=== PATIENT | female | born 1995 | race American Indian/Alaskan Native ===

== ENCOUNTER 2021-06-16 12:25 | Emergency (ER) | payer MEDICAID ==
[2021-06-16] MEDS ORDERED: ACETAMINOPHEN 325 MG TAB PO ONE (12:44)
[2021-06-16 13:11] LABS: Basophils # (Auto) 0.1 K/mm3 (0.0-0.1); Basophils % (Auto) 0.6 % (0.0-1.8); Eosinophils % (Auto) 0.2 % (0.0-4.3); Hematocrit 40.3 % (30.3-42.9); Hemoglobin 13.1 gm/dl (10.1-14.3); Lymphocytes # (Auto) 1.8 K/mm3 (1.2-5.4); Lymphocytes % (Auto) 20.4 % (13.4-35.0); Mean Corpuscular HGB Conc 33 % (30-34); Mean Corpuscular Volume 89 fl (79-97); Monocytes # (Auto) 0.4 K/mm3 (0.0-0.8); Monocytes % (Auto) 4.6 % (0.0-7.3); Platelet Count 292 K/mm3 (140-440); Red Blood Count 4.54 M/mm3 (3.65-5.03); Red Cell Distribution Width 13.6 % (13.2-15.2)
[2021-06-16 13:35] LABS: Bilirubin,Urine NEG (Negative); Blood,Urine NEG (Negative); Color,Urine Amber (Yellow); Mucus,Urine 3+ /HPF; Urobilinogen,Urine < 2.0 mg/dL (<2.0)
--- NOTE | 2021-06-16 13:49 | Ultrasound Report ---
ULTRASOUND OBSTETRIC INDICATION / CLINICAL INFORMATION: , spotting, cramping. Clinical Gestational Age (GA): 5.2 weeks.days TECHNIQUE: Transabdominal and Transvaginal. COMPARISON: None available. FINDINGS: GESTATIONAL SAC: Well-defined oval shape and intrauterine in location. Gestational sac size measures 7.0 mm which corresponds to 5 weeks and 3 days. No pole identified. YOLK SAC: Not well seen ADNEXA: Right ovarian corpus luteal cyst seen FREE FLUID: None. ADDITIONAL FINDINGS: None. IMPRESSION: Gestational sac in the uterus with sac size corresponding to 5 weeks and 3 days gestational age. No f etal pole identified at this time. Follow-up ultrasound in 10-14 days can be used to confirm intraute rine . Signer Name: Nelson Magana MD Signed: 06/16/2021 1:45 PM Workstation Name: [id number]
[2021-06-16 14:07] LABS: Alanine Aminotransferase 17 units/L (7-56); Albumin 4.9 g/dL (3.9-5); BUN/Creatinine Ratio 20; Blood Urea Nitrogen 10 mg/dL (7-17); Calcium 9.8 mg/dL (8.4-10.2); Hemolysis Index 25
--- NOTE | 2021-06-16 14:28 | Emergency Department Report ---
ED HPI - General Chief complaint: Vaginal Bleeding Stated complaint: vaginal bleeding- Time Seen by Provider: 06/16/21 12:38 Source: patient Mode of arrival: Ambulatory Limitations: No Limitations - History of Present Illness Initial comments: Patient is a 26-year-old female presents emergency room with complaints of vaginal spotting that began a few days ago. She states that she has had a lot of increased stress and she thinks that this may be attributing to her spotting. She has lower abdominal cramping. She denies any falls or injuries. She states that she is approximately 5 weeks and states that she just had her first appointment with her NITRO MAN at [facility]. She denies any fever, nausea, vomiting, diarrhea, dysuria, vaginal discharge. no allergies to meds. /P:1/A:1 LNMP in april 2021 - Related Data Allergies Allergy/AdvReac Type Severity Reaction Status Date / Time No Known Allergies Allergy Verified 06/16/21 12:34 ED Review of Systems ROS: Stated complaint: vaginal bleeding- Other details as noted in HPI Comment: All other systems reviewed and negative ED Physical Exam - General Limitations: No Limitations General appearance: alert, in no apparent distress - Head Head exam: Present: atraumatic, normocephalic - Eye Eye exam: Present: normal appearance - ENT ENT exam: Present: mucous membranes moist - Respiratory Respiratory exam: Present: normal lung sounds bilaterally. Absent: respiratory distress, wheezes, rales, rhonchi, stridor, chest wall tenderness, accessory muscle use, decreased breath sounds, prolonged expiratory - Cardiovascular Cardiovascular Exam: Present: regular rate, normal rhythm, normal heart sounds. Absent: systolic murmur, diastolic murmur, rubs, gallop - GI/Abdominal GI/Abdominal exam: Present: soft, normal bowel sounds. Absent: distended, tenderness, guarding, rebound, rigid - Neurological Exam Neurological exam: Present: alert, oriented X3 - Psychiatric Psychiatric exam: Present: normal affect, normal mood - Skin Skin exam: Present: warm, dry, intact ED Course Vital Signs 06/16/21 06/16/21 12:30 14:49 Temperature 98.9 F 98.2 F Pulse Rate 95 H 85 Respiratory 18 14 Rate Blood Pressure 133/78 Blood Pressure 111/67 [Right] O2 Sat by Pulse 97 98 Oximetry ED Medical Decision Making - Lab Data Result diagrams: 06/16/21 12:50 06/16/21 12:50 Lab Results 06/16/21 06/16/21 06/16/21 Range/Units 12:50 12:50 12:50 WBC 9.0 (4.5-11.0) K/mm3 RBC 4.54 (3.65-5.03) M/mm3 Hgb 13.1 (10.1-14.3) gm/dl Hct 40.3 (30.3-42.9) % MCV 89 (79-97) fl MCH 29 (28-32) pg MCHC 33 (30-34) % RDW 13.6 (13.2-15.2) % Plt Count 292 (140-440) K/mm3 Lymph % (Auto) 20.4 (13.4-35.0) % Travis % (Auto) 4.6 (0.0-7.3) % Eos % (Auto) 0.2 (0.0-4.3) % Baso % (Auto) 0.6 (0.0-1.8) % Lymph # (Auto) 1.8 (1.2-5.4) K/mm3 Travis # (Auto) 0.4 (0.0-0.8) K/mm3 Eos # (Auto) 0.0 (0.0-0.4) K/mm3 Baso # (Auto) 0.1 (0.0-0.1) K/mm3 Seg Neutrophils % 74.2 H (40.0-70.0) % Seg Neutrophils # 6.7 (1.8-7.7) K/mm3 Sodium 136 L (137-145) mmol/L Potassium 4.3 (3.6-5.0) mmol/L Chloride 98.9 (98-107) mmol/L Carbon Dioxide 23 (22-30) mmol/L Anion Gap 18 mmol/L BUN 10 (7-17) mg/dL Creatinine 0.5 L (0.6-1.2) mg/dL Estimated GFR > 60 ml/min BUN/Creatinine Ratio 20 % Glucose 90 (65-100) mg/dL Calcium 9.8 (8.4-10.2) mg/dL Total Bilirubin 0.40 (0.1-1.2) mg/dL AST 16 (5-40) units/L ALT 17 (7-56) units/L Alkaline Phosphatase 40 (35-129) units/L Total Protein 8.1 (6.3-8.2) g/dL Albumin 4.9 (3.9-5) g/dL Albumin/Globulin Ratio 1.5 % HCG, Quant 6290 H (0-4) mIU/mL Urine Color (Yellow) Urine Turbidity (Clear) Urine pH (5.0-7.0) Ur Specific [place] (1.003-1.030) Urine Protein (Negative) mg/dL Urine Glucose (UA) (Negative) mg/dL Urine Ketones (Negative) mg/dL Urine Blood (Negative) Urine Nitrite (Negative) Urine Bilirubin (Negative) Urine Urobilinogen (<2.0) mg/dL Ur Leukocyte Esterase (Negative) Urine WBC (Auto) (0.0-6.0) /HPF Urine RBC (Auto) (0.0-6.0) /HPF U Epithel Cells (Auto) (0-13.0) /HPF Urine Mucus /HPF Blood Type 06/16/21 06/16/21 Range/Units 12:50 13:04 WBC (4.5-11.0) K/mm3 RBC (3.65-5.03) M/mm3 Hgb (10.1-14.3) gm/dl Hct (30.3-42.9) % MCV (79-97) fl MCH (28-32) pg MCHC (30-34) % RDW (13.2-15.2) % Plt Count (140-440) K/mm3 Lymph % (Auto) (13.4-35.0) % Travis % (Auto) (0.0-7.3) % Eos % (Auto) (0.0-4.3) % Baso % (Auto) (0.0-1.8) % Lymph # (Auto) (1.2-5.4) K/mm3 Travis # (Auto) (0.0-0.8) K/mm3 Eos # (Auto) (0.0-0.4) K/mm3 Baso # (Auto) (0.0-0.1) K/mm3 Seg Neutrophils % (40.0-70.0) % Seg Neutrophils # (1.8-7.7) K/mm3 Sodium (137-145) mmol/L Potassium (3.6-5.0) mmol/L Chloride (98-107) mmol/L Carbon Dioxide (22-30) mmol/L Anion Gap mmol/L BUN (7-17) mg/dL Creatinine (0.6-1.2) mg/dL Estimated GFR ml/min BUN/Creatinine Ratio % Glucose (65-100) mg/dL Calcium (8.4-10.2) mg/dL Total Bilirubin (0.1-1.2) mg/dL AST (5-40) units/L ALT (7-56) units/L Alkaline Phosphatase (35-129) units/L Total Protein (6.3-8.2) g/dL Albumin (3.9-5) g/dL Albumin/Globulin Ratio % HCG, Quant (0-4) mIU/mL Urine Color [place] (Yellow) Urine Turbidity Slightly-cloudy (Clear) Urine pH 6.0 (5.0-7.0) Ur Specific [place] 1.032 H (1.003-1.030) Urine Protein 30 mg/dl (Negative) mg/dL Urine Glucose (UA) Neg (Negative) mg/dL Urine Ketones 80 (Negative) mg/dL Urine Blood Neg (Negative) Urine Nitrite Neg (Negative) Urine Bilirubin Neg (Negative) Urine Urobilinogen < 2.0 (<2.0) mg/dL Ur Leukocyte Esterase Neg (Negative) Urine WBC (Auto) 14.0 H (0.0-6.0) /HPF Urine RBC (Auto) 8.0 (0.0-6.0) /HPF U Epithel Cells (Auto) 10.0 (0-13.0) /HPF Urine Mucus 3+ /HPF Blood Type A POSITIVE - Radiology Data Radiology results: report reviewed Ordering Physician: SHABBIR LEE Date of Service: 06/16/21 Procedure(s): US OB <= 14 weeks fetus Accession Number(s): [id number] cc: SHABBIR LEE ULTRASOUND OBSTETRIC INDICATION / CLINICAL INFORMATION: , spotting, cramping. Clinical Gestational Age (GA): 5.2 weeks.days TECHNIQUE: Transabdominal and Transvaginal. COMPARISON: None available. FINDINGS: GESTATIONAL SAC: Well-defined oval shape and intrauterine in location. Gestational sac size measures 7.0 mm which corresponds to 5 weeks and 3 days. No pole identified. YOLK SAC: Not well seen ADNEXA: Right ovarian corpus luteal cyst seen FREE FLUID: None. ADDITIONAL FINDINGS: None. IMPRESSION: Gestational sac in the uterus with sac size corresponding to 5 weeks and 3 days gestational age. No pole identified at this time. Follow-up ultrasound in 10-14 days can be used to confirm intrauterine . Signer Name: Nelson Magana MD Signed: 06/16/2021 1:45 PM Workstation Name: [id number] Transcribed By: FABIAN Dictated By: eNlson Magana MD Electronically Authenticated By: Nelson Magana MD Signed Date/Time: 06/16/211344 DD/ 41 TD/TT: - Medical Decision Making Patient is a 26-year-old female presents emergency room with complaints of vaginal spotting that began a few days ago. She states that she has had a lot of increased stress and she thinks that this may be attributing to her spotting. She has lower abdominal cramping. She denies any falls or injuries. She states that she is approximately 5 weeks and states that she just had her first appointment with her NITRO MAN at [facility]. She denies any fever, nausea, vomiting, diarrhea, dysuria, vaginal discharge. no allergi es to meds. /P:1/A:1 LNMP in april 2021. vss. no abd ttp on exam. hcg quant 6290. Patient is Rh+. OB US: Gestational sac in the uterus with sac size corresponding to 5 weeks and 3 days gestational age. No pole identified at this time. Follow-up ultrasound in 10-14 days can be used to confirm intrauterine . Discussed all results with patient and answer questions. Discussed the importance of very close NITRO MAN follow-up. Patient was given her OB ultrasound report. Advised patient May take Tylenol as needed for any cramping. Increase your fluid intake. Practice pelvic rest. Decrease your stress. Follow-up with NITRO MAN, you need close NITRO MAN follow-up. Return to emergency room for any new or worse symptoms. Critical care attestation.: If time is entered above; I have spent that time in minutes in the direct care of this critically ill patient, excluding procedure time. ED Disposition Clinical Impression: Bleeding in early , Abdominal cramping Qualifiers: Weeks of gestation: less than 8 weeks Qualified Code(s): Z3A.01 - Less than 8 weeks gestation of Disposition: HOME / SELF CARE / HOMELESS Is pt being admited?: No Does the pt Need Aspirin: No Condition: Stable Instructions: Vaginal Bleeding During , First Trimester, [id number] Additional Instructions: May take Tylenol as needed for any cramping. Increase your fluid intake. Practice pelvic rest. Decrease your stress. Follow-up with NITRO MAN, you need close NITRO MAN follow-up. Return to emergency room for any new or worse symptoms. Referrals: PRIMARY CAREMD [Primary Care Provider] - 3-5 Days [facility] [Provider Group] - 3-5 Days Time of Disposition: 14:27 Print Language: AUSTRALIAN
[2021-06-16 14:51] VITALS: BP 111/67
== END 2021-06-16 14:51 | disposition home or self-care (01) ==
LOC: ED 12:25
DX: O20.9 Hemorrhage in early pregnancy, unspecified (principal); O26.891 Other specified pregnancy related conditions, first trimester; R10.9 Unspecified abdominal pain; Z3A.01 Less than 8 weeks gestation of pregnancy
CPT/HCPCS: 36415; 76801; 76817; 80053; 81001; 84702; 85025; 86900; 86901; 87086; 99284

== ENCOUNTER 2021-07-14 11:09 | Emergency (ER) | payer OTHER | END 2021-07-15 04:10 | LOC: ED 11:09 | DX: R11.10 Vomiting, unspecified (principal); Z53.21 Procedure and treatment not carried out due to patient leaving prior to being seen by health care provider ==